=== PATIENT | male | born 1940 | race African-American/Black ===

== ENCOUNTER 2021-02-13 11:50 | Day surgery (SDC) | payer MEDICARE, BC ==
[2021-02-13] VITALS (8 sets, daily range): BP systolic 101–167; BP diastolic 66–100
[~2021-02-13] VITALS: Ht 167.6 cm; Wt 63.0 kg
[~2021-02-13 11:50] MED LIST: ATOR20TA PO; CARV3.12 PO; HYDR1TAB PO; LIDOcaine 1% (10mg/ml)w/preservative injection 20ml MDV ONE; LISI2.5T14 PO; NOR5T PO; fentaNYL/PF 50MCG/1 ML 2ML syringe ONE; heparin 1,000unit/ml 10ml vial 10 ML ONE; midazolam 1 mg/ML 2ml injection ONE; nitroGLYCERIN-Tridil 50MG/D5W 250 ML IV ONE; verapamil 2.5 mg/ml inj IV ONE
[2021-02-13] MEDS ORDERED: LORazepam 0.5 MG tablet PO PRN (12:15)
[2021-02-13] MEDS ORDERED: normal saline 1,000 ML IV SCH (12:15)
[2021-02-13] MEDS ORDERED: diphenhydrAMINE 25mg capsule PO PRN (12:15)
[2021-02-13] MEDS ORDERED: BUDE0.5A11 IH (12:16)
[2021-02-13] MEDS ORDERED: AMIO200T61 PO (12:16)
[2021-02-13] MEDS ORDERED: CALC667T6 PO (12:16)
[2021-02-13] MEDS ORDERED: METO25TA6 PO (12:16)
[2021-02-13] MEDS ORDERED: ALB0.5UD IH (12:16)
[2021-02-13] MEDS ORDERED: APIX2.5T PO (12:17)
[2021-02-13] MEDS ORDERED: SACU1TAB PO (12:17)
[2021-02-13] MEDS ORDERED: MEGE40TA5 PO (12:18)
[2021-02-13] MEDS ORDERED: FOLI0.8T22 PO (12:19)
[2021-02-13] MEDS ORDERED: iohexol 350MG/ML 100ml bottle IV ONE (13:39)
[2021-02-13] MEDS ORDERED: HYDROcodone/acetaminophen 5mg/325mg tablet PO PRN (15:15)
[2021-02-13] MEDS ORDERED: ondansetron/PF 4mg/2ml inj IV PRN (15:15)
[2021-02-13] MEDS ORDERED: OXAZEpam 15mg capsule PO PRN (15:15)
[2021-02-13] MEDS ORDERED: HYDROcodone/acetaminophen 10/325mg tab PO PRN (15:15)
[2021-02-13] MEDS ORDERED: proCHLORperazine 10 MG/2 ml inj IV PRN (15:15)
== END 2021-02-13 17:33 | disposition home or self-care (01) ==
LOC: SSTAY O 11:50
PROVIDERS: ATTEND Internal Medicine Interventional Cardiology
DX: I35.0 Nonrheumatic aortic (valve) stenosis (principal); I25.10 Atherosclerotic heart disease of native coronary artery without angina pectoris; I25.82 Chronic total occlusion of coronary artery; J44.9 Chronic obstructive pulmonary disease, unspecified; G47.33 Obstructive sleep apnea (adult) (pediatric); I13.0 Hypertensive heart and chronic kidney disease with heart failure and stage 1 through stage 4 chronic kidney disease, or unspecified chronic kidney disease; N18.9 Chronic kidney disease, unspecified; I50.9 Heart failure, unspecified; I47.1 Supraventricular tachycardia; I48.91 Unspecified atrial fibrillation; I42.9 Cardiomyopathy, unspecified; I48.92 Unspecified atrial flutter; I27.20 Pulmonary hypertension, unspecified; Z95.810 Presence of automatic (implantable) cardiac defibrillator; Z79.899 Other long term (current) drug therapy; Z79.01 Long term (current) use of anticoagulants; Z99.2 Dependence on renal dialysis; Z94.0 Kidney transplant status; Z87.891 Personal history of nicotine dependence
CPT/HCPCS: 93005; 93454; 99152; C1769; C1894; J1644; J2250; J3010; J3490; J7030; Q0163; Q9967; 93458; 99153; A4620; A4663; A5120; A6258

== ENCOUNTER 2021-03-02 10:01 | Outpatient (CLI) | payer MEDICARE, BC ==
[~2021-03-02] VITALS: Ht 167.6 cm; Wt 63.5 kg
[~2021-03-02 10:01] MED LIST changes: +ALB0.5UD IH; +AMIO200T61 PO; +APIX2.5T PO; +BUDE0.5A11 IH; +CALC667T6 PO; -CARV3.12 PO; +FOLI0.8T22 PO; -LIDOcaine 1% (10mg/ml)w/preservative injection 20ml MDV ONE; -LISI2.5T14 PO; +MEGE40TA5 PO; +METO25TA6 PO; -NOR5T PO; +SACU1TAB PO; -fentaNYL/PF 50MCG/1 ML 2ML syringe ONE; -heparin 1,000unit/ml 10ml vial 10 ML ONE; -midazolam 1 mg/ML 2ml injection ONE; -nitroGLYCERIN-Tridil 50MG/D5W 250 ML IV ONE; -verapamil 2.5 mg/ml inj IV ONE
[2021-03-02 10:46] LABS: EOSINOPHILS # (AUTO) 0.2 X10'3 (0-0.9); EOSINOPHILS % (AUTO) 3.4 % (0-6); HEMOGLOBIN 11.2 g/dl (14.0-17.9); LYMPHOCYTES # (AUTO) 0.9 X10'3 (1.1-4.8); LYMPHOCYTES % (AUTO) 18.9 % (21-51); MEAN CORPUSCULAR HEMOGLOBIN 30.5 PG (27.0-31.0); MEAN CORPUSCULAR VOLUME 92.4 FL (78-98); MEAN PLATELET VOLUME 7.2 FL (7.4-10.4); MONOCYTES # (AUTO) 0.5 X10'3 (0-0.9); MONOCYTES % (AUTO) 10.6 % (2-12); NEUTROPHILS % (AUTO) 66.1 % (42-75); PLATELET COUNT 198 X10'3 (140-440); RED BLOOD COUNT 3.68 X10'6 (4.70-6.10); RED CELL DISTRIBUTION WIDTH 19.3 % (11.5-14.5); WHITE BLOOD COUNT 4.5 X10'3 (4.5-11.0)
[2021-03-02 11:01] LABS: APTT 31 SECONDS (22-32)
[2021-03-02 11:07] LABS: ALANINE AMINOTRANSFERASE 18 U/L (12-78); ALBUMIN/GLOBULIN RATIO 0.7 (1.1-1.5); ALKALINE PHOSPHATASE 57 IU/L (46-116); ANION GAP 9 (8-16); ASPARTATE AMINO TRANSFERASE 16 U/L (10-37); BILIRUBIN,TOTAL 0.4 MG/DL (0.1-1.0); CALCIUM 9.2 MG/DL (8.5-10.1); CHLORIDE 102 MMOL/L (99-107); GLUCOSE 88 MG/DL (70-104); POTASSIUM 3.7 MMOL/L (3.5-5.1); SODIUM 142 MMOL/L (135-145); TOTAL CARBON DIOXIDE 30.9 MMOL/L (24-32); TOTAL PROTEIN 7.4 G/DL (6.4-8.2)
[2021-03-02 11:15] LABS: ANISOCYTOSIS 2+; HYPOCHROMASIA 1+; PLATELET ESTIMATE NORMAL
[2021-03-02 11:16] LABS: ELLIPTOCYTES FEW
[2021-03-02 11:20] LABS: BLOOD UREA NITROGEN 23 MG/DL (7-18); CREATININE 6.11 MG/DL (0.60-1.10); eGFR 11 ML/MIN
[2021-03-02 11:21] LABS: BUN/CREATININE RATIO 3.8 (5.4-32.0)
[2021-03-02] MEDS ORDERED: IODIXANOL 320 MG/ML INFUS..BTL 100ML IV ONE (11:49)
[2021-03-02] MEDS ORDERED: IODIXANOL 320 MG/ML INFUS..BTL 50ML IV ONE ×2 (11:50)
[2021-03-02] MEDS ORDERED: albuterol 2.5 MG/3 ML nebule NEB PRN (13:05)
[2021-03-02 13:10] LABS: ABG BASE EXCESS 2.9 mmol/L (-2.0-2.0); ABG HCO3 26.2 mmol/L (22.0-26.0); ABG OXYGEN SATURATION 94.2 % (94-97); ABG PCO2 (T) 35.8 mmHg (35.0-48.0); ABG PO2 (T) 68.3 mmHg (75.0-100.0); ALLEN'S TEST POSITIVE; FCOHb 0.4 % (0.0-3.9); FMetHb 0.3 % (0.0-1.5); FO2Hb 93.5 % (94-97)
== END 2021-03-02 23:59 | disposition home or self-care (01) ==
LOC: RAD 10:01
PROVIDERS: ATTEND Internal Medicine Cardiovascular Disease
DX: Z01.818 Encounter for other preprocedural examination (principal); J43.2 Centrilobular emphysema; J43.8 Other emphysema; K86.2 Cyst of pancreas; I70.293 Other atherosclerosis of native arteries of extremities, bilateral legs; R19.03 Right lower quadrant abdominal swelling, mass and lump; N26.1 Atrophy of kidney (terminal); M47.816 Spondylosis without myelopathy or radiculopathy, lumbar region; N28.1 Cyst of kidney, acquired; K86.89 Other specified diseases of pancreas; I72.3 Aneurysm of iliac artery; N62 Hypertrophy of breast; I25.10 Atherosclerotic heart disease of native coronary artery without angina pectoris; J98.11 Atelectasis; I70.0 Atherosclerosis of aorta; K55.1 Chronic vascular disorders of intestine; Z87.891 Personal history of nicotine dependence; Z79.899 Other long term (current) drug therapy
CPT/HCPCS: 36415; 36600; 71046; 71275; 74174; 80053; 82803; 85008; 85018; 85025; 85610; 85730; 87635; 94060; 94727; 94729; 94760; C9803; Q9967

== ENCOUNTER 2021-03-08 14:24 | Outpatient (CLI) | payer MEDICARE, BC ==
[~2021-03-08] VITALS: Ht 167.6 cm; Wt 64.2 kg
--- NOTE | 2021-03-08 15:24 | NUR ---
Patient and daughters in clinic for new patient visit with Dr. Go and Dr. Reza. [id number] Patient in wheelchair and unable to perform walk test. Patient questions and symptoms discussed.
[2021-03-08 17:43] VITALS: BP 111/57
== END 2021-03-08 23:59 | disposition home or self-care (01) ==
LOC: TAVR 14:24
PROVIDERS: ATTEND Internal Medicine Cardiovascular Disease
DX: I08.3 Combined rheumatic disorders of mitral, aortic and tricuspid valves (principal)
CPT/HCPCS: 93306